=== PATIENT | male | born 2000 | race Caucasian/White ===

== ENCOUNTER 2020-02-26 21:06 | Emergency (ER) | payer SELFPAY ==
[2020-02-26 21:10] VITALS: BP 135/81; PULSE 96; RESP 16; TEMP 36.4; O2SAT 99
--- NOTE | 2020-02-26 21:32 | ED.GENADULT ---
HPI - General Adult General Chief complaint: Dental/Oral <Guillermo Pierre PA-C - Last Filed: 02/26/20 21:37> Stated complaint: dental pain <Guillermo Pierre PA-C - Last Filed: 02/26/20 21:37> Time Seen by Provider: 02/26/20 21:24 <Guillermo Pierre PA-C - Last Filed: 02/26/20 21:37> Source: patient <Guillermo Pierre PA-C - Last Filed: 02/26/20 21:37> Mode of arrival: ambulatory <Guillermo Pierre PA-C - Last Filed: 02/26/20 21:37> Limitations: no limitations <Guillermo Pierre PA-C - Last Filed: 02/26/20 21:37> History of Present Illness HPI narrative: Patient is a 19-year-old male who presents with left lower dental pain with history of decay for the last several days notes chronic dental pain denies fever or URI symptoms or other complaints and is otherwise resting comfortably in the room in no distress upon arrival <Guillermo Pierre PA-C - Last Filed: 02/26/20 21:37> Related Data Allergies/adverse reactions: Allergies Allergy/AdvReac Type Severity Reaction Status Date / Time No Known Allergies Allergy Verified 02/26/20 21:08 <Guillermo Pierre PA-C - Last Filed: 02/26/20 21:37> Review of Systems Review of Systems: All systems reviewed & are unremarkable except as noted in HPI and below <Guillermo Pierre PA-C - Last Filed: 02/26/20 21:37> PMFSH Social History Social History: Social History (Updated 02/26/20 @ 21:35 by Guillermo Pierre PA-C) Smoking status: Current every day smoker Gender identity (if verbalized by the patient): Male <Guillermo Pierre PA-C - Last Filed: 02/26/20 21:37> Exam Narrative: Exam Narrative: GENERAL: Well-appearing, well-nourished, and in no acute distress. HEAD: Normocephalic, atraumatic. EYES: PERRLA and EOMI. ENT: Nares clear, no rhinorrhea or epistaxis. Mucous membranes moist. Oropharynx without tonsillar hypertrophy exudate or other lesions. Left lower premolar with decay no erythema facial swelling or gum swelling floor of the mouth is soft NECK: Supple. No adenopathy or masses. CHEST: Clear to auscultation. No respiratory distress. No wheezes rales or rhonchi HEART: Regular rate and rhythm. No murmur heard. SKIN: Warm, dry, no rash. NEURO: No focal deficits. Alert and oriented x3. Cranial nerves II through XII grossly intact PSYCH: Normal mood and affect. <Guillermo Pierre PA-C - Last Filed: 02/26/20 21:37> Course Course Emergency Course: Patient in the room in no distress aware of case findings treatment plan and diagnosis agreeing to follow-up as directed <Guillermo Pierre PA-C - Last Filed: 02/26/20 21:37> Vital Signs Vital signs: Vital Signs Temperature 97.5 F L 02/26/20 21:10 Pulse Rate 96 02/26/20 21:10 Respiratory Rate 16 02/26/20 21:10 Blood Pressure 135/81 02/26/20 21:10 Pulse Oximetry 99 02/26/20 21:10 Temperature 97.5 F L 02/26/20 21:10 Pulse Rate 88 02/26/20 21:56 Respiratory Rate 20 02/26/20 21:56 Blood Pressure 135/81 02/26/20 21:10 Pulse Oximetry 100 02/26/20 21:56 <Guillermo Pierre PA-C - Last Filed: 02/26/20 21:37> Vital Signs Temperature 97.5 F L 02/26/20 21:10 Pulse Rate 96 02/26/20 21:10 Respiratory Rate 16 02/26/20 21:10 Blood Pressure 135/81 02/26/20 21:10 Pulse Oximetry 99 02/26/20 21:10 Temperature 97.5 F L 02/26/20 21:10 Pulse Rate 88 02/26/20 21:56 Respiratory Rate 20 02/26/20 21:56 Blood Pressure 135/81 02/26/20 21:10 Pulse Oximetry 100 02/26/20 21:56 <Emilee Escobar MD - Last Filed: 02/27/20 00:58> Medical Decision Making MDM Narrative Medical decision making narrative: Patients pain and complaint coupled with physical findings are consistent with dentalgia. There are no focal signs of space occupying lesions that are compromising to the airway. The floor of the mouth is soft with no signs of Ludwigs Angina. Patient is without trismus or drooling and able to swall
[2020-02-26] MEDS: KETOROLAC (*BKC) 60 MG/2 ML VIAL IM (21:55)
[2020-02-26 21:56] VITALS: PULSE 88; RESP 20; O2SAT 100
== END 2020-02-26 21:57 | disposition home or self-care (01) ==
PROVIDERS: Emergency Provider Emergency Medicine
DX: K08.9 Disorder of teeth and supporting structures, unspecified (principal); F17.200 Nicotine dependence, unspecified, uncomplicated
CPT/HCPCS: 96372; 99283; A9270; J1885